=== PATIENT | male | born 1940 | race Caucasian/White ===

== ENCOUNTER 2017-11-19 06:54 | Day surgery (SDC) | payer BC ==
[~2017-11-19 06:54] MED LIST: KETOROLAC TROMETHAMINE 0.45% 4 DROP/0.4 ML DROPERETTE OS PRN
[2017-11-19] MEDS: TETRACAINE HCL 0.5% OPH SOLN 0.6 ML DROPERETTE OS PRN ×3 (07:14→07:41)
[2017-11-19] MEDS: TROPICAMIDE 1% OPH SOLN 3 ML OS PRN ×2 (07:15→07:40)
[2017-11-19] MEDS: CYCLOPENTOLATE 0.2%/PHENYLEPHRINE 1% OPH SOLN 2 ML OS PRN ×3 (07:15→07:40)
[2017-11-19] MEDS: BESIFLOXACIN HCL 0.6% OPH SUSP 5 ML BOTTLE OS PRN ×4 (07:16→08:27)
[2017-11-19] MEDS ORDERED: MIDAZOLAM 2 MG/2 ML INJ ONE (07:28)
[2017-11-19] MEDS: LIDOCAINE 4% INJ/PF (40 MG/ML) 5 ML AMPUL OS PRN ×2 (08:02)
[2017-11-19] MEDS: BUPIVACAINE HCL 0.75% INJ/PF (7.5 MG/1 ML) 10 ML SDV OS PRN ×2 (08:02)
[2017-11-19] MEDS: CHONDR SU A NA/HYALUR INTRAOC KIT (SURGICARE) ONE ×2 (08:10)
[2017-11-19] MEDS: LIDOCAINE 1% INJ-PF (10 MG/ML) 30 ML SDV ONE ×2 (08:10)
[2017-11-19] MEDS: EPINEPHRINE INJ/PF 1 MG/1 ML AMPULE ONE ×2 (08:10)
--- NOTE | 2017-11-19 08:38 | [facility] OPERATIVE REPORT E ---
[facility] Operative Report NAME: ELISHA CHANDLER AGE: 76Y DATE OF SURGERY: 11/19/2017 ROOM: PREOPERATIVE DIAGNOSIS: CATARACT, LEFT EYE. POSTOPERATIVE DIAGNOSIS: CATARACT, LEFT EYE. OPERATION: Phacoemulsification with posterior chamber intraocular lens, left eye. SURGEON: FRANCIS FRANKLIN M.D. ANESTHESIA: Topical with MAC. INDICATIONS FOR SURGERY: Difficulty driving at night due to glare. Best corrected visual acuity 20/40. DESCRIPTION OF PROCEDURE: The patient was brought to the operating room and placed on the operative table. Following tetracaine drops, topical anesthesia was administered. This consisted of instrument wipe pledgets soaked in a solution of 4% Xylocaine mixed with 0.75% Marcaine in a 1:2 ratio. A 2 x 1 cm pledget was placed in the superior fornix. A 1 x 1 cm pledget was placed in the inferior fornix. The eye was patched shut for 5 minutes. The patch was removed. The eye was sterilely prepped and draped in the usual manner. Lid speculum was placed in the eye. The pledgets were removed, 4-0 black silk sutures were placed around the superior and the inferior rectus muscles to be used as traction. A conjunctival peritomy was made at the 10 o'clock position. Hemostasis was obtained with bipolar cautery. A posterior limbal groove was created using a crescent knife and dissected anteriorly towards the cornea. A sharp point blade was used to create a paracentesis site at the 2 o'clock position. A 2.4 mm keratome was used to enter the anterior chamber through the groove. Viscoelastic was injected into the anterior chamber. An anterior capsulotomy was performed using Utrata forceps in a capsulorrhexis fashion. Hydrodissection and hydrodelineation were performed. Phacoemulsification was performed in fbghjx-whg-jvmmqrv technique. A total of 16.42 CDE phaco time was used. Following this, the I/A unit was used to remove residual cortex. Viscoelastic was injected into the capsular bag. Intraocular lens Model SN60WF, 23.5 diopter, serial number [id number] was placed in the capsular bag. The I/A unit was used to removed residual viscoelastic. The wound was seen to be watertight under high and low pressure, and no sutures were placed. The intraocular lens was well centered. The pressure was adjusted in the eye to normal pressure. The 4-0 black silk sutures and lid speculum were removed. The eye was shielded after Besivance drops were placed. The patient tolerated the procedure well and was sent to the recovery room in good condition. DICTATING PHYSICIAN: FRANCIS FRANKLIN M.D. [id number] PHY#: [id number] ID: [id number] JOB#: [id number] ACCT: [id number] cc:FRANCIS FRANKLIN M.D. >
--- NOTE | 2017-11-19 08:40 | [facility] DISCHARGE SUMMARY E ---
[facility] Discharge Summary NAME: ELISHA CHANDLER AGE: 76Y ADMITTED: 11/19/2017 DISCHARGED: 11/19/2017 PREOPERATIVE DIAGNOSIS: CATARACT, LEFT EYE. POSTOPERATIVE DIAGNOSIS: CATARACT, LEFT EYE HOSPITAL COURSE: Patient is a 76-year-old gentleman who underwent uneventful cataract extraction with intraocular lens implant, left eye, on 11/19/2017. DISPOSITION: He will be discharged to home. He was instructed to resume preoperative medications; take Tylenol as needed for discomfort; to keep his eye shielded; to use Besivance, Durezol, and Ilevro at 3:00 p.m. and 8:00 p.m., and to follow up in my office in 1 day. DICTATING PHYSICIAN: FRANCIS FRANKLIN M.D. [id number] PHY#: [id number] ID: [id number] JOB#: [id number] ACCT: [id number] cc:FRANCIS FRANKLIN M.D. >
== END 2017-11-19 09:08 | disposition home or self-care (01) ==
LOC: SC 06:54
PROVIDERS: ATTEND Ophthalmology
PROC: 08RJ3JZ Replacement of Right Lens with Synthetic Substitute, Percutaneous Approach (ICD-10-PCS; principal; 2017-11-19 08:00)
DX: H25.813 Combined forms of age-related cataract, bilateral (principal); H53.021 Refractive amblyopia, right eye; I10 Essential (primary) hypertension; I49.9 Cardiac arrhythmia, unspecified; Z87.891 Personal history of nicotine dependence; Z79.899 Other long term (current) drug therapy
CPT/HCPCS: 66984; V2632; J2250; J3490 ×4; J0171; 142

== ENCOUNTER 2017-12-19 08:01 | Day surgery (SDC) | payer BC ==
[~2017-12-19 08:01] MED LIST changes: +BUPIVACAINE HCL 0.75% INJ/PF (7.5 MG/1 ML) 10 ML SDV OD PRN; +CHONDR SU A NA/HYALUR INTRAOC KIT (SURGICARE) ONE; +EPINEPHRINE INJ/PF 1 MG/1 ML AMPULE ONE; +KETOROLAC TROMETHAMINE 0.45% 4 DROP/0.4 ML DROPERETTE OD PRN; -KETOROLAC TROMETHAMINE 0.45% 4 DROP/0.4 ML DROPERETTE OS PRN; +LIDOCAINE 4% INJ/PF (40 MG/ML) 5 ML AMPUL OD PRN
[2017-12-19] MEDS ORDERED: LIDOCAINE 1% INJ-PF (10 MG/ML) 30 ML SDV ONE (08:14)
[2017-12-19] MEDS: BESIFLOXACIN HCL 0.6% OPH SUSP 5 ML BOTTLE OD PRN ×3 (08:36→09:46)
[2017-12-19] MEDS: CYCLOPENTOLATE 0.2%/PHENYLEPHRINE 1% OPH SOLN 2 ML OD PRN ×3 (08:36→08:56)
[2017-12-19] MEDS: TROPICAMIDE 1% OPH SOLN 3 ML OD PRN ×3 (08:36→08:56)
[2017-12-19] MEDS: TETRACAINE HCL 0.5% OPH SOLN 0.6 ML DROPERETTE OD PRN ×2 (08:37→08:56)
[2017-12-19] MEDS ORDERED: MIDAZOLAM 2 MG/2 ML INJ ONE (09:01)
--- NOTE | 2017-12-19 10:14 | [facility] OPERATIVE REPORT E ---
[facility] Operative Report NAME: ELISHA CHANDLER AGE: 77Y DATE OF SURGERY: 12/19/2017 ROOM: PREOPERATIVE DIAGNOSIS: CATARACT, RIGHT EYE. POSTOPERATIVE DIAGNOSIS: CATARACT, RIGHT EYE. OPERATION: PHACOEMULSIFICATION WITH POSTERIOR CHAMBER INTRAOCULAR LENS, RIGHT EYE. SURGEON: FRANCIS FRANKLIN M.D. ANESTHESIA: TOPICAL WITH MAC. INDICATIONS FOR SURGERY: Difficulty reading small print, glare at night. PROCEDURE: The patient was brought to the Operating Room and placed on the operative table. Following tetracaine drops, topical anesthesia was administered. This consisted of instrument wipe pledgets soaked in a solution of 4% Xylocaine mixed with 0.75% Marcaine in a 1:2 ratio. A 2 x 1 cm pledget was placed in the superior fornix. A 1 x 1 cm pledget was placed in the inferior fornix. The eye was patched shut for 5 minutes. The patch was removed. The eye was sterilely prepped and draped in the usual manner. Lid speculum was placed in the eye. The pledgets were removed. 4-0 black silk sutures were placed around the superior and the inferior rectus muscles to be used as traction. A conjunctival peritomy was made at the 10 o'clock position. Hemostasis was obtained with bipolar cautery. A posterior limbal groove was created using a crescent knife and dissected anteriorly towards the cornea. A sharp point blade was used to create a paracentesis site at the 2 o'clock position. A 2.4 mm keratome was used to enter the anterior chamber through the groove. Viscoelastic was injected into the anterior chamber. An anterior capsulotomy was performed using Utrata forceps in a capsulorrhexis fashion. Hydrodissection and hydrodelineation were performed. Phacoemulsification was performed in sialhv-nce-iarpdua technique. A total of 11.66 seconds phaco time was used. Following this, the I/A unit was used to remove residual cortex. Viscoelastic was injected into the capsular bag. Intraocular lens model SN60WF, 24.5 diopters, serial number [id number] was placed in the capsular bag. The I/A unit was used to remove residual viscoelastic. The wound was seen to be watertight under high and low pressure, and no sutures were placed. The intraocular lens was well centered. The pressure was adjusted in the eye to normal pressure. The 4-0 black silk sutures and lid speculum were removed. The eye was shielded after Besivance drops were placed. The patient tolerated the procedure well and was sent to the Recovery Room in good condition. DICTATING PHYSICIAN: FRANCIS FRANKLIN M.D. DICTATING PHYSICIAN: FRANCIS FRANKLIN M.D. [id number] PHY#: [id number] ID: [id number] JOB#: [id number] ACCT: [id number] cc:FRANCIS FRANKLIN M.D. >
--- NOTE | 2017-12-19 10:19 | [facility] DISCHARGE SUMMARY E ---
[facility] Discharge Summary NAME: ELISHA CHANDLER AGE: 77Y ADMITTED: 12/19/2017 DISCHARGED: HOSPITAL COURSE: The patient is a 76-year-old gentleman who underwent uneventful cataract extraction with intraocular lens implant right eye on 12/19/2017. He will be discharged to home. He is instructed to resume preoperative medications, take Tylenol as needed for discomfort, to keep his eye shielded, to use Besivance, Ilevro and Durezol at 3 p.m. and 8 p.m. To follow up in my office in 1 day. DICTATING PHYSICIAN: FRANCIS FRANKLIN M.D. [id number] PHY#: [id number] ID: [id number] JOB#: [id number] ACCT: [id number] cc:FRANCIS FRANKLIN M.D. >
== END 2017-12-19 10:30 | disposition home or self-care (01) ==
LOC: SC 08:01
PROVIDERS: ATTEND Ophthalmology
DX: H25.811 Combined forms of age-related cataract, right eye (principal); Z96.1 Presence of intraocular lens; I10 Essential (primary) hypertension; Z87.891 Personal history of nicotine dependence
CPT/HCPCS: 66984; V2632; J2250; J3490 ×4; J0171; 142